=== PATIENT | female | born 1945 | race Caucasian/White ===

== ENCOUNTER → 2018-09-12 | Day surgery (SDC) | payer MEDICARE, OTHER ==
[2018-09-08 12:25] LABS: BASOPHILS # (AUTO) 0.1 (0.0-0.1); BASOPHILS % 0.9 % (0.0-1.0); EOSINOPHILS # (AUTO) 0.1 (0.0-0.4); EOSINOPHILS % 1.5 % (0.0-6.0); HEMATOCRIT 38.7 % (34.2-44.1); HEMOGLOBIN 13.3 g/dL (12.0-16.0); LYMPHOCYTES # (AUTO) 2.1 (1.0-3.2); MEAN CORPUSCULAR HEMOGLOBIN 32.2 pg (28-32); MEAN CORPUSCULAR HGB CONC 34.4 g/dL (31-35); MEAN CORPUSCULAR VOLUME 93.7 fL (81-99); MONOCYTES # (AUTO) 0.6 (0.2-0.8); MONOCYTES % 8.4 % (4.4-11.3); NEUTROPHILS # (AUTO) 3.8 (2.1-6.9); PLATELET COUNT 253 x10e3/uL (140-360); RED BLOOD COUNT 4.13 x10e6/uL (3.6-5.1); RED CELL DISTRIBUTION WIDTH 12.7 % (11.7-14.4)
--- NOTE | 2018-09-08 13:14 | Diagnostic Imaging Report ---
EXAM: XR CHEST 2 VIEWS DATE: 09/08/2018 12:15 PM INDICATION: Preoperative, foot pain COMPARISON: 10/14/2014 FINDINGS: Lines and Tubes: None Heart and Mediastinum: No acute cardiomediastinal findings. Mild aortic vascular calcifications and tortuosity descending thoracic aorta. Lungs and Pleura: No significant pleural effusion, pneumothorax, or focal consolidation. Atelectasis lung bases. Bones and Soft Tissues: No acute findings. IMPRESSION: 1. No acute cardiopulmonary findings. Signed by: Dr. Cheikh Dick MD on 09/08/2018 1:10 PM
[~2018-09-12] MED LIST: ACETAMINOPHEN 1000 MG/100 ML IV ONE; BACITRACIN 50,000 UNIT VIAL ONE; BUPIVACAINE HCL 0.5% 10ML MPF VIAL INJ ONE; CALCIUM PO; CEFAZOLIN SOD 1 GM/D5W 50ML 50 ML IV ONE; CENTRUM PO; CRESTOR10 MG PO; DEXAMETHASONE SOD PHOS INJ 4 MG/ML VIAL ONE; FENTANYL CITRATE/PF 100MCG/2 ML INJ ONE; LEVOTHYROXINE25 MCG PO; LIDOCAINE HCL 2% LOCAL INJ 5 ML SDV VIAL INJ ONE; MIDAZOLAM HCL 2 MG/2 ML VIAL ONE; MINIVELLE PATCH TD; NEXIUM20 MG PO; NEXIUM40 MG PO; ONDANSETRON HCL INJ 2 MG/ML VIAL ONE; PREMARIN PO; PROPOFOL IV EMULSION 10 MG/ML 20 ML VIAL ONE; SEVOFLURANE INHAL SOLN 250 ML PEN BTL ONE; TRAZADONE PO; VENLAFAXINE H37.5 M2 PO
--- OUTSIDE RECORDS SUMMARY | 2018-09-12 05:09 | XMS REPORT | Summary of Care ---
Author Author [facility] [place] Organization [facility] [place] Address Unknown Phone Unavailable Encounter HQ Encntr_alias(FIN) [id number] Date(s): 03/18/15 - 03/18/15 [facility] [place] [address] [facility] [place] [address] [phone] Discharge Disposition: Home Attending Physician: Ruperto Quintanilla MD Vital Signs No data available for this section Problem List No data available for this section Allergies, Adverse Reactions, Alerts No data available for this section Medications No data available for this section Results No data available for this section Immunizations No data available for this section Procedures No data available for this section Social History No data available for this section Assessment and Plan No data available for this section
--- OUTSIDE RECORDS SUMMARY | 2018-09-12 05:09 | XMS REPORT | Summary of Care ---
Author Organization Unknown Address Unknown Phone Unavailable Encounter HQ Encntr_alias(FIN) [id number] Date(s): 03/06/15 - 03/06/15 [facility] Outpatient Imaging - [address], [address] [phone] Discharge Disposition: Home Physician Attending: Ruperto Quintanilla MD Vital Signs No data [...]
--- OUTSIDE RECORDS SUMMARY | 2018-09-12 05:09 | XMS REPORT | Summary of Care ---
Author Organization Unknown Address Unknown Phone Unavailable Encounter HQ Encntr_jacki([facility]) [id number] Date(s): 06/04/14 - 06/04/14 [facility] Outpatient Imaging - [address] [address] [place] Discharge Disposition: Home Physician Attending: Ruperto Acosta MD Reason for Visit V76.12 - SCREEN MAMMOGRA Problem List No data available for this section Allergies, Adverse Reactions, Alerts No data available for this section Medications No data available for this section Medications Administered During Your Visit No data available for this section Immunizations No data available for this section
--- OUTSIDE RECORDS SUMMARY | 2018-09-12 05:09 | XMS REPORT | Continuity of Care Document ---
Author Author [facility] Interface Address Unknown Phone Unavailable Problems Problem Status Onset Date Classification Date Reported Comments Source R06.02 - SHORTNESS OF BREATH Active 03/17/2018 [facility] [place] ABDOMINAL OR PELVIC SWELLING, MASS OR LUMP, UNSPECIFIED SITE Active 03/27/2015 Condition 03/27/2015 [facility] UNK Active 03/27/2015 [facility] V76.12 - SCREEN MAMMOGRA Active 05/17/2014 [facility] [place] GERD (<span ID="[id number]</span>) Active Problem 04/10/2015 [facility] Hypothyroid Active Problem 04/10/2015 [facility] Mass of back Active Problem 04/10/2015 [facility] LIPOMA NEC Active [facility] Medications Medication Details Route Status Patient Instructions Ordering Provider Order Date Source Ondansetron 4 mg, 2 mL, Route: IVP, Drug form: INJ, ONCE, Dosing Weight 62.727, kg, PRN Nausea & Vomiting, Start date: 04/07/15 12:24:00Notes: (Same as: Osiel) MEDICATION WASTE Product Size: 4 mg Product Wasted: ___ mg Inactive 04/07/2015 [facility] Naloxone 0.04 mg, 0.1 mL, Route: IVP, Drug form: INJ, Q2MIN, Dosing Weight 62.727, kg, PRN Narcotic Reversal, Start date: 04/07/15 12:24:00, Duration: 8 doses or times, Stop date: Limited # of timesNotes: Same as Narcan Inactive 04/07/2015 [facility] Morphine 2 mg, 1 mL, Route: IVP, Drug form: INJ, Q5Min, Dosing Weight 62.727, kg, PRN Pain Score 4-6, Start date: 04/07/15 12:24:00, Duration: 5 doses or times, Stop date: Limited # of timesNotes: (Same as:MO RPhine Sulfate) Inactive 04/07/2015 [facility] Flumazenil 0.2 mg, 2 mL, Route: IVP, Drug form: INJ, PRN, Dosing Weight 62.727, kg, PRN Benzodiazepine Reversal, Initial dose, Start date: 04/07/15 12:24:00, Stop date: 04/08/15 12:23:00Notes: (Same as: Romazicon) Inactive 04/07/2015 [facility] Hydromorphone 0.5 mg, 0.5 mL, Route: IVP, Drug form: INJ, Q5Min, Dosing Weight 62.727, kg, PRN Pain Score 7-10, Start date: 04/07/15 12:24:00, Duration: 4 doses or times, Stop date: Limited # of times Inactive 04/07/2015 [facility] Fentanyl 50 microgram, 1 mL, Route: IVP, Drug form: INJ, Q5Min, Dosing Weight 62.727, kg, PRN Pain Score 7-10, Start date: 04/07/15 12:24:00, Duration: 2 doses or times, Stop date: Limited # of timesNotes: (Same as: Sublimaze) Preservative free. Inactive 04/07/2015 [facility] Acetaminophen 1,000 mg, Route: IVPB, Drug form: INJ, ONCE, Dosing Weight 62.727, kg, PRN Pain Score 1-3, Start date: 04/07/15 12:24:00, Duration: 1 doses or times, Stop date: Limited # of times Inactive 04/07/2015 [facility] Ketorolac Tromethamine 10 MG Oral Tablet 10 mg=1 tab, PO, Q6H, X 5 day, # 20 tab, 0 Refill(s) Active 04/07/2015 [facility] Ancef 2 gm, 100 mL, Route: IVPB, Drug form: INJ, ONCE, Dosing Weight 62.727, kg, Start date: 04/07/15 9:50:00, Duration: 1 doses or times, Stop date: 04/07/15 9:50:00Notes: Same as: Ancef Inactive 04/07/2015 [facility] Calcium Chloride 0.0014 MEQ/ML / Potassium Chloride 0.004 MEQ/ML / Sodium Chloride 0.103 MEQ/ML / Sodium Lactate 0.028 MEQ/ML Injectable Solution 1,000 mL, Rate: 25 ml/hr, Infuse over: 40 hr, Route: IV, Dosing Weight 62.727 kg, Total Volume: 1,000, Start date: 04/07/15 9:12:00, Duration: 30 day, Stop date: 05/07/15 9:11:00 Inactive 04/07/2015 [facility] Calcium Citrate PO, Daily, 0 Refill(s) Active 04/01/2015 [facility] Vitamin B12 0 Refill(s) Active 04/01/2015 [facility] Centrum Daily, 0 Refill(s) Active 04/01/2015 [facility] Premarin PO, Daily, 0 Refill(s) Active 04/01/2015 [facility] Esomeprazole 20 MG Enteric Coated Capsule [Nexium] 20 mg=1 cap, PO, Daily, # 30 cap, 0 Refill(s) Active 04/01/2015 [facility] venlafaxine 37.5 mg oral tablet, extended release 37.5 mg=1 tab, PO, Daily, # 30 tab, 0 Refill(s) Active 04/01/2015 [facility] levothyroxine 25 mcg (0.025 mg) oral tablet 25 microgram=1 tab, PO, Daily, # 30 tab, 0 Refill(s) Active 04/01/2015 [facility] Trazodone Hydrochloride 100 MG Oral Tablet 100 mg=1 tab, PO, Bedtime, # 30 tab, 1 Refill(s) Active 04/01/2015 [facility] Rosuvastatin calcium 10 MG Oral Tablet [Crestor] 10 mg=1 tab, PO, Bedtime, # 30 tab, 0 Refill(s) Active 04/01/2015 [facility] CRESTOR 10 MG TABS Active 03/27/2015 [facility] TRAZODONE HCL 100 MG TABS 1 tablet at bedtime Active 03/27/2015 [facility] LEVOTHYROXINE SODIUM 100 MCG TABS 1 tablet daily Active 03/27/2015 [facility] NEXIUM 20 MG CPDR 1 capsule daily Active 03/27/2015 [facility] VENLAFAXINE HCL ER 37.5 MG [id number] Active 03/27/2015 [facility] PREMARIN 0.625 MG TABS 1 tablet daily Active 03/27/2015 [facility] CENTRUM TABS Active 03/27/2015 [facility] CALCIUM ACETATE TABS Active 03/27/2015 [facility] Allergies, Adverse Reactions, Alerts Substance Category Reaction Severity Reaction type Status Date Reported Comments Source HYDROCODONE Drug allergy HYDROCODONE 03/27/2015 [facility] VICODIN Drug allergy VICODIN 03/27/2015 [facility] acetaminophen-HYDROcodone Assertion Drug allergy Active [facility] Geneva Assertion Drug allergy Active [facility] Tylenol with Codeine Assertion Drug allergy Active [facility] Vicodin Assertion Drug allergy Active [facility] Immunizations Immunization Date Given Site Status Last Updated Comments Source Results Order Name Results Value Reference Range Date Interpretation Comments Source Chest 2 views DX Chest 2 views DX EXAM: PA AND LATERAL CHEST X RAY DATE:- 03/17/2018 3:38 PM CDT . ORDERING PHYSICIAN: Marlon Carrero MD CLINICAL INDICATION: - mild shortness of breath; TECHNIQUE: PA and lateral views of chest COMPARISON: Unavailable FINDINGS: The lungs are slightly hyperinflated without focal consolidation. Heart size and mediastinal contours are normal. There is no acute bony abnormality. IMPRESSION: Slightly hyperinflated lungs without focal consolidation 03/17/2018 - - Read by: Arie Sam MD Dictated Date/time: 03/17/18 16:27 Electronically Signed by: Arie Sam MD 03/17/18 16:27 FINAL REPORT [facility] [place] ELECTROLYTES AGAP 13.4 meq/L 10.0 - 20.0 04/01/2015 [facility] ELECTROLYTES A/G Ratio 1.2 0.7 - 1.6 04/01/2015 [facility] ELECTROLYTES B/C Ratio 24 6 - 25 04/01/2015 [facility] ELECTROLYTES Globulin 3.2 g/dL 2.0 - 4.0 04/01/2015 [facility] ELECTROLYTES eGFR 88 mL/min/1.73m2 04/01/2015 Result Comment: The eGFR is calculated using the CKD-EPI formula. In most young, healthy individuals the eGFR will be >90 mL/min/1.73m2. The eGFR declines with age. An eGFR of 60-89 may be normal in some populations, particularly the elderly, for whom the CKD-EPI formula has not been extensively validated. Use of the eGFR is not recommended in the following populations: Individuals with unstable creatinine concentrations, including patients and those with serious co-morbid conditions. Patients with extremes in muscle mass or diet. The data above are obtained from the National Kidney Disease Education Program (NKDEP) which additionally recommends that when the eGFR is used in patients with extremes of body mass index for purposes of drug dosing, the eGFR should be multiplied by the estimated BMI. [facility] ELECTROLYTES Potassium Lvl 4.4 meq/L 3.5 - 5.1 04/01/2015 [facility] ELECTROLYTES Sodium Lvl 142 meq/L 135 - 145 04/01/2015 [facility] ELECTROLYTES Chloride Lvl 106 meq/L 95 - 109 04/01/2015 [facility] ELECTROLYTES Calcium Lvl 9.2 mg/dL 8.5 - 10.5 04/01/2015 [facility] ELECTROLYTES Creatinine Lvl 0.7 mg/dL 0.5 - 1.4 04/01/2015 [facility] ELECTROLYTES Bili Total 0.5 mg/dL 0.2 - 1.3 04/01/2015 [facility] ELECTROLYTES AST 18 unit/L 0 - 37 04/01/2015 [facility] ELECTROLYTES Albumin Lvl 3.9 g/dL 3.5 - 5.0 04/01/2015 [facility] ELECTROLYTES Total Protein 7.1 g/dL 6.4 - 8.4 04/01/2015 [facility] ELECTROLYTES Alk Phos 65 unit/L 39 - 136 04/01/2015 [facility] ELECTROLYTES ALT 23 unit/L 0 - 65 04/01/2015 [facility] ELECTROLYTES Glucose Lvl 86 mg/dL 70 - 99 04/01/2015 [facility] ELECTROLYTES BUN 17 mg/dL 7 - 22 04/01/2015 [facility] ELECTROLYTES CO2 27 meq/L 24 - 32 04/01/2015 [facility] HEMATOLOGY Eosinophils 0.6 % 0.0 - 4.0 04/01/2015 [facility] HEMATOLOGY Monocytes 6.0 % 2.0 - 12.0 04/01/2015 [facility] HEMATOLOGY Basophils 1.1 % 0.0 - 1.0 04/01/2015 [facility] HEMATOLOGY Lymphocytes 28.6 % 20.0 - 40.0 04/01/2015 [facility] HEMATOLOGY Basophils # 0.1 K/CMM 0.0 - 0.2 04/01/2015 [facility] HEMATOLOGY Lymphocytes # 2.2 K/CMM 1.0 - 5.5 04/01/2015 [facility] HEMATOLOGY Segs 63.7 % 45.0 - 75.0 04/01/2015 [facility] HEMATOLOGY Segs-Bands # 5.0 K/CMM 1.5 - 8.1 04/01/2015 [facility] HEMATOLOGY Monocytes # 0.5 K/CMM 0.0 - 0.8 04/01/2015 [facility] RBC 4.25 M/CMM 4.20 - 5.40 04/01/2015 [facility] Hgb 13.6 g/dL 12.0 - 16.0 04/01/2015 [facility] WBC 7.8 K/CMM 3.7 - 10.4 04/01/2015 [facility] Hct 39.8 % 36.0 - 48.0 04/01/2015 [facility] MCHC 34.2 g/dL 32.0 - 36.0 04/01/2015 [facility] MCH 32.1 pg 27.0 - 31.0 04/01/2015 [facility] RDW 12.3 % 11.5 - 14.5 04/01/2015 [facility] Platelet 277 K/CMM 133 - 450 04/01/2015 [facility] MPV 7.9 fL 7.4 - 10.4 04/01/2015 [facility] MCV 93.7 fL 80.0 - 98.0 04/01/2015 [facility] Spine lumbar w/wo contrast MRI Spine lumbar w/wo contrast MRI MRI LUMBAR SPINE WITHOUT AND WITH CONTRAST TECHNIQUE: Sagittal T1, sagittal T2 with fat saturation, axial T1 and axial T2 images were obtained. Intravenous gadolinium was given. COMPARISON: No prior exam. FINDINGS: Cutaneous marker is placed at the right paramedian posterior soft tissues at the L3 level. There is subjacent deep subcutaneous ill-defined increased T2 and STIR signal, with corresponding mild enhancement measuring approximately 17 mm transversely and 6.6 mm in AP dimension. No involvement of the underlying posterior paraspinal muscles is identified. No involvement of the lumbar spine is seen. Mild levocurvature of the lumbar spine is present. Right hepatic lobe T2 weighted hyperintense signal lesions are seen with peripheral contrast enhancement. The larger lesion measures approximately 3.8 cm craniocaudal dimension, 2.7 cm transversely. The conus medullaris terminates at the L1 level. T12-L1: Mild left asymmetric disc bulge is seen with minimal central canal stenosis. No mass effect on the lower thoracic cord. No foraminal stenosis. L1-L2: Approximately 5 mm disc osteophyte complex is seen with mild central canal stenosis. There is moderate to severe right foraminal stenosis due to disc osteophyte complex encroachment. Mild left foraminal stenosis is present. L2-L3: Mild disc bulge with scattered annular fissures are seen with mild central canal stenosis and mild bilateral foraminal stenosis. L3-L4: Unremarkable. L4-L5: Significant disc narrowing is present with moderate bilateral foraminal stenosis due to disc osteophyte complexes. Left asymmetric disc osteophyte complex measuring approximately 3.8 mm is seen with moderate left lateral recess stenosis and mild mass effect on the left L5 descending nerve root. L5-S1: Similar significant disc narrowing with moderate to severe bilateral foraminal stenosis due to disc osteophyte complex encroachment. Minimal central canal stenosis present. No abnormal enhancement is seen. IMPRESSION: 1. L3 level right paramedian deep subcutaneous signal abnormality and ill-defined enhancement, likely due to focal cellulitis sequela of recent trauma. Clinical followup is recommended. 2. Right hepatic lobe lesions likely hepatic hemangiomas, but not completely evaluated on this exam. Correlation with ultrasound is recommended. 3. Multilevel lumbar spine degenerative changes as above. 03/18/2015 - - Read by: Daimr Ovalle MD Dictated Date/time: 03/18/15 10:18 Electronically Signed by: Damir Ovalle MD 03/18/15 12:24 FINAL REPORT [facility] Naik Ext Lower non vascular US Ext Lower non vascular US EXAM: ULTRASOUND SOFT TISSUES OF BACK NONVASCULAR DATE: 03/06/2015 COMPARISON EXAMS: None. CLINICAL INDICATION: Palpable mass along the posterior right lower back DATA: Two to 3 cm Mass over the area of region and right back with tenderness when she bends or sleeps. TECHNIQUE: Multiple transverse and longitudinal images through the right mid to lower back in the region of the palpable abnormality were performed using grayscale and color flow imaging. An approximately 4 cm radius was scanned around the region of interest. DISCUSSION: No masses, cystic lesions, calcifications, or other pathology are seen in the region of interest. The contralateral left lower back reveals no abnormalities as well with a symmetric appearance to the right side. IMPRESSION: No abnormalities are visualized in the region of interest. If symptoms persist or worsen, or of the lesion enlarges, MRI would be the next imaging study of choice for further evaluation. 03/06/2015 - - Read by: Godfrey Escobedo MD Dictated Date/time: 03/07/15 08:20 Electronically Signed by: Godfrey Escobedo MD 03/07/15 08:24 FINAL REPORT [facility] Vital Signs Vital Sign Value Date Comments Source Systolic (mm Hg) 138 04/07/2015 [facility] Diastolic (mm Hg) 83 04/07/2015 [facility] Systolic (mm Hg) 147 04/07/2015 [facility] Diastolic (mm Hg) 75 04/07/2015 [facility] Systolic (mm Hg) 159 04/07/2015 [facility] Diastolic (mm Hg) 77 04/07/2015 [facility] Respitory Rate 17 04/07/2015 [facility] Respitory Rate 20 04/07/2015 [facility] Respitory Rate 17 04/07/2015 [facility] Heart Rate 67 04/01/2015 [facility] Temperature Oral (F) 98.3 F 04/01/2015 [facility] Height 160.02 cm 04/01/2015 [facility] Weight 62.727 04/01/2015 [facility] BMI Calculated 24.5 04/01/2015 [facility] Height 63 03/27/2015 [facility] Weight 138 03/27/2015 [facility] Temperature Oral (F) 98.2 F 03/27/2015 [facility] Heart Rate 62 03/27/2015 [facility] Systolic (mm Hg) 124 03/27/2015 [facility] Diastolic (mm Hg) 81 03/27/2015 [facility] Encounters Location Location Details Encounter Type Encounter Number Reason For Visit Attending Provider ADM Date DC Date Status Source [facility] [place] [facility] [id number] Ruperto Acosta 06/04/2014 06/05/2014 [facility] [place] [facility] Outpatient Imaging - [place] [facility] [id number] Ruperto Quintanilla 03/06/2015 03/07/2015 [facility] [place] [facility] - [place] [facility] [id number] Ruperto Quintanilla 03/18/2015 03/19/2015 [facility] [place] [facility] General Surgery 350 Office Visit [id number] Christiane Scott MD 03/27/2015 03/27/2015 [facility] Outpatient [id number] CHRISTIANE SCOTT 03/27/2015 Active [facility] Outpatient [id number] CHRISTIANE SCOTT 04/07/2015 Active [facility] Day Surgery [id number] Christiane Scott 04/07/2015 04/07/2015 [facility] Outpatient [id number] CHRISTIANE SCOTT 04/15/2015 Active [facility] Procedures Procedure Code Date Perfomer Comments Source Bunionectomy [id number] [place] Hysterectomy [id number] [facility] Tonsillectomy [id number] [facility]
--- OUTSIDE RECORDS SUMMARY | 2018-09-12 05:10 | XMS REPORT | Summary of Care ---
Author Author [facility] Organization [facility] Address Unknown Phone Unavailable Encounter YAKOV Bundy(MARIAN) [id number] Date(s): 04/07/15 - 04/07/15 [facility] [address] [place] [address]- Discharge Disposition: Home Attending Physician: Ravi Scott MD Referring Physician: Ravi Scott MD Vital Signs 1 2 3 Most recent to oldest [Reference Range]: 160.02 cm (04/01/15 2:22 PM) Height 1 2 3 Most recent to oldest [Reference Range]: 98.3 DegF (04/01/15 2:22 PM) Temperature Oral [96.4-99.1 DegF] 1 2 3 Most recent to oldest [Reference Range]: 138/83 mmHg (04/07/15 1:45 PM) 147/75 mmHg *HI* (04/07/15 1:30 PM) 159/77 mmHg *HI* (04/07/15 1:15 PM) Blood Pressure [90-140/60-90 mmHg] 1 2 3 Most recent to oldest [Reference Range]: 17 BRMIN (04/07/15 1:00 PM) 20 BRMIN (04/07/15 12:45 PM) 17 BRMIN (04/07/15 12:30 PM) Respiratory Rate [14-20 BRMIN] 1 2 3 Most recent to oldest [Reference Range]: 67 bpm (04/01/15 2:22 PM) Peripheral Pulse Rate [60-100 bpm] 1 2 3 Most recent to oldest [Reference Range]: 62.727 kg (04/01/15 2:22 PM) Weight 1 2 3 Most recent to oldest [Reference Range]: 24.5 m2 (04/01/15 2:22 PM) Body Mass Index Problem List Condition Effective Dates Status Health Status Informant GERD Active (gastroesophageal reflux disease)(Confirmed) Hypothyroid(Confirme Active d) Mass of Active back(Confirmed) Allergies, Adverse Reactions, Alerts Substance Reaction Severity Status acetaminophen-HYDROcodone Active Creighton Active Tylenol with Codeine Active Vicodin Active Medications acetaminophen 1,000 mg, Route: IVPB, Drug form: INJ, ONCE, Dosing Weight 62.727, kg, PRN Pain Score 1-3, Start date: 04/07/15 12:24:00, Duration: 1 doses or times, Stop date: Limited # of times Start Date: 04/07/15 Stop Date: 04/07/15 Status: Deleted Ancef 2 gm, 100 mL, Route: IVPB, Drug form: INJ, ONCE, Dosing Weight 62.727, kg, Start date: 04/07/15 9:50:00, Duration: 1 doses or times, Stop date: 04/07/15 9:50:00 Notes: Same as: Ancef Start Date: 04/07/15 Stop Date: 04/07/15 Status: Completed calcium citrate PO, Daily, 0 Refill(s) Start Date: 04/01/15 Status: Ordered Centrum Daily, 0 Refill(s) Start Date: 04/01/15 Status: Ordered Crestor 10 mg oral tablet 10 mg=1 tab, PO, Bedtime, # 30 tab, 0 Refill(s) Start Date: 04/01/15 Status: Ordered fentaNYL 50 microgram, 1 mL, Route: IVP, Drug form: INJ, Q5Min, Dosing Weight 62.727, kg, PRN Pain Score 7-10, Start date: 04/07/15 12:24:00, Duration: 2 doses or times, Stop date: Limited # of times Notes: (Same as: Sublimaze) Preservative free. Start Date: 04/07/15 Stop Date: 04/07/15 Status: Discontinued flumazenil 0.2 mg, 2 mL, Route: IVP, Drug form: INJ, PRN, Dosing Weight 62.727, kg, PRN Jimenez zodiazepine Reversal, Initial dose, Start date: 04/07/15 12:24:00, Stop date: 12:23:00 Notes: (Same as: Romazicon) Start Date: 04/07/15 Stop Date: 04/07/15 Status: Discontinued hydromorphone 0.5 mg, 0.5 mL, Route: IVP, Drug form: INJ, Q5Min, Dosing Weight 62.727, kg, PRN Pain Score 7-10, Start date: 04/07/15 12:24:00, Duration: 4 doses or times, Stop date: Limited # of times Start Date: 04/07/15 Stop Date: 04/07/15 Status: Discontinued ketOROLAC 10 mg oral tablet 10 mg=1 tab, PO, Q6H, X 5 day, # 20 tab, 0 Refill(s) Start Date: 04/07/15 Stop Date: 04/12/15 Status: Ordered Lactated Ringers Injection IV 1,000 mL 1,000 mL, Rate: 25 ml/hr, Infuse over: 40 hr, Route: IV, Dosing Weight 62.727 kg , Total Volume: 1,000, Start date: 04/07/15 9:12:00, Duration: 30 day, Stop date : 05/07/15 9:11:00 Start Date: 04/07/15 Stop Date: 04/07/15 Status: Discontinued levothyroxine 25 mcg (0.025 mg) oral tablet 25 microgram=1 tab, PO, Daily, # 30 tab, 0 Refill(s) Start Date: 04/01/15 Status: Ordered morphine Sulfate 2 mg, 1 mL, Route: IVP, Drug form: INJ, Q5Min, Dosing Weight 62.727, kg, PRN Darlene n Score 4-6, Start date: 04/07/15 12:24:00, Duration: 5 doses or times, Stop saturnino e: Limited # of times Notes: (Same as:MORPhine Sulfate) Start Date: 04/07/15 Stop Date: 04/07/15 Status: Discontinued naloxone 0.04 mg, 0.1 mL, Route: IVP, Drug form: INJ, Q2MIN, Dosing Weight 62.727, kg, IN N Narcotic Reversal, Start date: 04/07/15 12:24:00, Duration: 8 doses or times, Stop date: Limited # of times Notes: Same as Narcan Start Date: 04/07/15 Stop Date: 04/07/15 Status: Discontinued NexIUM 20 mg oral delayed release capsule 20 mg=1 cap, PO, Daily, # 30 cap, 0 Refill(s) Start Date: 04/01/15 Status: Ordered ondansetron 4 mg, 2 mL, Route: IVP, Drug form: INJ, ONCE, Dosing Weight 62.727, kg, PRN Naus ea & Vomiting, Start date: 04/07/15 12:24:00 Notes: (Same as: Osiel) MEDICATION WASTE Product Size: 4 mgProduct Was omar: ___ mg Start Date: 04/07/15 Stop Date: 04/07/15 Status: Discontinued Premarin PO, Daily, 0 Refill(s) Start Date: 04/01/15 Status: Ordered trazodone 100 mg oral tablet 100 mg=1 tab, PO, Bedtime, # 30 tab, 1 Refill(s) Start Date: 04/01/15 Stop Date: 05/01/15 Status: Ordered venlafaxine 37.5 mg oral tablet, extended release 37.5 mg=1 tab, PO, Daily, # 30 tab, 0 Refill(s) Start Date: 04/01/15 Status: Ordered Vitamin B12 0 Refill(s) Start Date: 04/01/15 Status: Ordered Results ELECTROLYTES Most recent to 1 oldest [Reference Range]: Sodium Lvl [135-145 142 mEq/L mEq/L] (04/01/15 2:36 PM) Potassium Lvl 4.4 mEq/L [3.5-5.1 mEq/L] (04/01/15 2:36 PM) Chloride Lvl [95-109 106 mEq/L mEq/L] (04/01/15 2:36 PM) CO2 [24-32 mEq/L] 27 mEq/L (04/01/15 2:36 PM) AGAP [10.0-20.0 13.4 mEq/L mEq/L] (04/01/15 2:36 PM) CHEM PANEL Most recent to 1 oldest [Reference Range]: Creatinine Lvl 0.7 mg/dL [0.5-1.4 mg/dL] (04/01/15 2:36 PM) eGFR 88 mL/min/1.73m2 1 *NA* (04/01/15 2:36 PM) BUN [7-22 mg/dL] 17 mg/dL (04/01/15 2:36 PM) B/C Ratio [6-25] 24 (04/01/15 2:36 PM) Glucose Lvl [70-99 86 mg/dL mg/dL] (04/01/15 2:36 PM) Total Protein 7.1 g/dL [6.4-8.4 g/dL] (04/01/15 2:36 PM) Albumin Lvl [3.5-5.0 3.9 g/dL g/dL] (04/01/15 2:36 PM) Globulin [2.0-4.0 3.2 g/dL g/dL] (04/01/15 2:36 PM) A/G Ratio [0.7-1.6] 1.2 (04/01/15 2:36 PM) Calcium Lvl 9.2 mg/dL [8.5-10.5 mg/dL] (04/01/15 2:36 PM) ALT [0-65 unit/L] 23 unit/L (04/01/15 2:36 PM) AST [0-37 unit/L] 18 unit/L (04/01/15 2:36 PM) Alk Phos [39-136 65 unit/L unit/L] (04/01/15 2:36 PM) Bili Total [0.2-1.3 0.5 mg/dL mg/dL] (04/01/15 2:36 PM) 1Result Comment: The eGFR is calculated using the [...] from the National Kidney Disease Education Program ( NKDEP) which additionally recommends that when the eGFR is used in patients with extremes of body mass index for purposes of drug dosing, the eGFR should be mul tiplied by the estimated BMI. HEMATOLOGY Most recent to 1 oldest [Reference Range]: WBC [3.7-10.4 K/CMM] 7.8 K/CMM (04/01/15 2:36 PM) RBC [4.20-5.40 4.25 M/CMM M/CMM] (04/01/15 2:36 PM) Hgb [12.0-16.0 g/dL] 13.6 g/dL (04/01/15 2:36 PM) Hct [36.0-48.0 %] 39.8 % (04/01/15 2:36 PM) MCV [80.0-98.0 fL] 93.7 fL (04/01/15 2:36 PM) MCH [27.0-31.0 pg] 32.1 pg *HI* (04/01/15 2:36 PM) MCHC [32.0-36.0 34.2 g/dL g/dL] (04/01/15 2:36 PM) RDW [11.5-14.5 %] 12.3 % (04/01/15 2:36 PM) Platelet [133-450 277 K/CMM K/CMM] (04/01/15 2:36 PM) MPV [7.4-10.4 fL] 7.9 fL (04/01/15 2:36 PM) Segs [45.0-75.0 %] 63.7 % (04/01/15 2:36 PM) Lymphocytes 28.6 % [20.0-40.0 %] (04/01/15 2:36 PM) Monocytes [2.0-12.0 6.0 % %] (04/01/15 2:36 PM) Eosinophils [0.0-4.0 0.6 % %] (04/01/15 2:36 PM) Basophils [0.0-1.0 1.1 % %] *HI* (04/01/15 2:36 PM) Segs-Bands # 5.0 K/CMM [1.5-8.1 K/CMM] (04/01/15 2:36 PM) Lymphocytes # 2.2 K/CMM [1.0-5.5 K/CMM] (04/01/15 2:36 PM) Monocytes # [0.0-0.8 0.5 K/CMM K/CMM] (04/01/15 2:36 PM) Basophils # [0.0-0.2 0.1 K/CMM K/CMM] (04/01/15 2:36 PM) Immunizations No data available for this section Procedures Procedure Date Related Diagnosis Body Site Bunionectomy Hysterectomy Tonsillectomy Social History Social History Type Response Smoking Status Never smoker; Exposure to Tobacco Smoke None; Cigarette Smoking Last 365 Days No; Reg Smoking Cessation Counseling No Assessment and Plan Extracted from: Title: Clinical Document Author: Ravi Scott MD Date: 03/27/15 Referring Provider: Ruperto Quintanilla MD Primary Provider: Ruperto Quintanilla MD CC: back mass. History of Present Illness: Thank you for allowing me to particiapte in the care of this patient 69 year old lady comes for evaluation of a back mass. Noticed it recently when she started to develop some pain in the area. descirbed as dull and cramping, mild to moderate, worse with daily activities such as working in the garden. Work up including MRI shows an indistinct mass. Past Medical History: Reviewed history and no changes required: Back Lipoma Bronchitis Measles Low Thyroid Tonsillitis Anemia - 1967 Arthritis - hands Breast Lump High Tryglicerides Mumps Loss of Sleep Hot Flashes Indigestion Past Surgical History: Reviewed history and no changes required: Left Breast Lumpectomy - 1999 Tonsillectomy - 2011 Hysterectomy - 1971 Family History Summary: Mother (biol.) - Has Family History of Hypertension - Entered On: 03/27/2015 Social History: Alcohol Use - yes Drug Use - no HIV/High Risk - no Smoking History: Patient has never smoked. Risk Factors: Smoked Tobacco Use: Never smoker Smokeless Tobacco Use: Never Drug use: no HIV high-risk behavior: no Caffeine use: 0 drinks per day Alcohol use: yes Type: Red Wine Drinks per day: 1 Review of Systems General Denies fever, chills and sweats. Eyes Denies double vision and blurred vision. ENT Denies hoarseness and sore throat. CV Denies difficulty breathing at night and chest pain. Resp Denies cough and shortness of breath. GI Denies nausea, vomiting and abdominal pain. Denies urinary frequency and urinary urgency. MS See HPI Complains of back pain. Denies upper extremity pain and lower extremity pain. Derm Denies itching and rash. Neuro Denies numbness and tingling. Psych Denies anxiety and depression. Endo Denies cold intolerance and heat intolerance. Heme Denies bleeding and abnormal bruising. Vital Signs: Patient Profile:69 Years Old Female Height:63 inches (160.02 cm) Weight: 138 pounds (62.73 kg) BMI:24.53 kg/m2 BSA:1.65 m2 Temp:98.2 degrees F (36.78 degrees C) oral Pulse rate:62 / minute BP sittin / 81 (right arm) Cuff size:regular Vitals Entered By: Radha Cruz (March 27, 2015 10:41 AM) Physical Exam General: well developed, well nourished, in no acute distress. Head: normocephalic and atraumatic. Eyes: PERRL/EOM intact, conjunctiva and sclera clear Neck: no masses Chest Wall: no deformities Lungs: clear bilaterally to auscultation. Heart: regular rhythm and normal rate. Abdomen: normal bowel sounds; no hepatosplenomegaly no ventral,umbilical hernias or masses noted. Msk: no deformity. small 5x3cm mass noted, mobile, soft, feels like a lipoma Pulses: pulses normal in all 4 extremities. Extremities: no clubbing, cyanosis, edema, or deformity noted Neurologic: no focal deficits, cranial nerves II-XII grossly intact Skin: intact without lesions or rashes. Psych: alert and cooperative; normal mood and affect; normal attention span and concentration. Impression & Recommendations: Problem # 1: ABDOMINAL OR PELVIC SWELLING, MASS OR LUMP, UNSPECIFIED SITE (ICD- 789.30) (YCF24-V63.00) Assessment: New Back mass Desires excision Risks and benefits discussed with patient in detail Orders: Office Visit, New, Level III - 54422 ([id number]) Medications Added to Medication List This Visit: 1) Crestor 10 Mg Tabs (Rosuvastatin calcium) 2) Trazodone Hcl 100 Mg Tabs (Trazodone hcl) .... 1 tablet at bedtime 3) Levothyroxine Sodium 100 Mcg Tabs (Levothyroxine sodium) .... 1 tablet daily 4) Nexium 20 Mg Cpdr (Esomeprazole magnesium) .... 1 capsule daily 5) Venlafaxine Hcl Er 37.5 Mg [id number] (Venlafaxine hcl) 6) Premarin 0.625 Mg Tabs (Estrogens conjugated) .... 1 tablet daily 7) Centrum Tabs (Multiple vitamins-minerals) 8) Calcium Acetate Tabs (Calcium acetate tabs) Patient Instructions: 1) Reassured 2) Plan excision 3) Avoid trigger factors Did you e-prescribe during this visit? No Electronic prescriptions were not sent during this visit.
--- OUTSIDE RECORDS SUMMARY | 2018-09-12 05:10 | XMS REPORT | Continuity of Care Document ---
Author Author [facility] Organization [facility] Address Unknown Phone Unavailable Care Team Providers Care Foot Drill Operator Name Role Phone MD Sonia, Ravi GODDARD Unavailable Insurance Providers Payer name Policy type / Coverage type Policy ID Covered libertarian ID Policy Fuller MEDIC[place] [employer] A[employer] (HMO) AETNA - COMPREHENSIVE MEDICAL (INDEMNITY) AETNA (HMO) AETNA (HMO) AETNA (HMO) AETNA (HMO) AETNA (HMO) AETNA (HMO) Encounters Encounter Performer Location Date Office Visit Ravi Scott MD [facility] [address] Mar 27, 2015 Allergies, Adverse Reactions, Alerts Type Substance Reaction Status Drug allergy HYDROCODONE Itching Active Drug allergy VICODIN itching Active Problems Problem Effective Dates Problem Status ABDOMINAL OR PELVIC SWELLING, MASS OR LUMP, UNSPECIFIED SITE Mar 27, 2015 Active Procedures Date Description Comments Mar 27, 2015 smoking status Never smoker Medications Medication Instructions Start Date Status CRESTOR 10 MG TABS Mar 27, 2015 Active TRAZODONE HCL 100 MG TABS 1 tablet at bedtime Mar 27, 2015 Active LEVOTHYROXINE SODIUM 100 MCG TABS 1 tablet daily Mar 27, 2015 Active NEXIUM 20 MG CPDR 1 capsule daily Mar 27, 2015 Active VENLAFAXINE HCL ER 37.5 MG [id number] Mar 27, 2015 Active PREMARIN 0.625 MG TABS 1 tablet daily Mar 27, 2015 Active CENTRUM TABS Mar 27, 2015 Active CALCIUM ACETATE TABS Mar 27, 2015 Active Vital Signs Date Description Test Result Mar 27, 2015 height E&M - 8302-2 HEIGHT 63 in Mar 27, 2015 weight E&M - 3141-9 WEIGHT 138 lb Mar 27, 2015 temperature E&M TEMPERATURE 98.2 deg f Mar 27, 2015 pulse rate E&M - 8867-4 PULSE RATE 62 /min Mar 27, 2015 blood pressure, systolic - 8480-6 BP SYSTOLIC 124 mm Hg Mar 27, 2015 blood pressure, diastolic - 8462-4 BP DIASTOLIC 81 mm Hg
--- OUTSIDE RECORDS SUMMARY | 2018-09-12 05:10 | XMS REPORT ---
Author Author [facility] Address Unknown Phone Unavailable Care Team Providers Care Can Doffer Name Role Phone Itzel LITTLE Unavailable Unavailable Problems This patient has no known problems. Allergies, Adverse Reactions, Alerts This patient has no known allergies or adverse reactions. Medications This patient has no known medications. Results Test Description Test Time Test Comments Text Results Atomic Results Result Comments CHEST 2 VIEWS 2018-09-08 13:10:00 [facility] [address] [address] Patient Name: KRISHAN CAMPA MR #: [id number] : 1945 Age/Sex: 72/F Req #: [id number] Adm Physician: Ordered by: Itzel LITTLE DPM Report #: [id number] Location: OR Room/Bed: Procedure: [id number] DX/CHEST 2 VIEWS Exam Date: 09/08/18 Exam Time: 1236 REPORT STATUS: Signed EXAM: XR CHEST 2 VIEWS DATE: 09/08/2018 12:15 PM IND ICATION: Preoperative, foot pain COMPARISON: 10/14/2014 FINDINGS: Lines and Tubes: None Heart and Mediastinum: No acute cardiomediastinal findings. Mild aortic vascular calcifications and tortuosity descending thoracic aorta. Lungs and Pleura: No significant pleural effusion, pneumothorax, or focal consolidation. Atelectasis lung bases. Bones and Soft Tissues: No acute findings. IMPRESSION: 1. No acute cardiopulmonary findings. Signed by: Dr. Cheikh Dick MD on 09/08/2018 1:10 PM Dictated By: CHEIKH DICK MD 09 Transcribed By: RAMIN on 09/08/181309 COPY TO: Itzel LITTLE DPM
[2018-09-12 08:00] VITALS: BP 149/85
--- NOTE | 2018-09-12 10:42 | Operative Report ---
DATE OF PROCEDURE: September 12, 2018 PREOPERATIVE DIAGNOSES 1. Right hallux rigidus. 2. Right hallux valgus. POSTOPERATIVE DIAGNOSES 1. Right hallux rigidus. 2. Right hallux valgus. PLANNED PROCEDURE: Right Marshall bunionectomy with implant. SURGEON: Dr. Jorge DPM. VOCAL TEACHER: Dianna Jain DPM ANESTHESIA: General with a postoperative block consisting of 15 mL of 0.5% Marcaine plain mixed with 1 mL of dexamethasone phosphate. HEMOSTASIS: Pneumatic thigh tourniquet set at 350 mmHg for a total time of approximately 30 minutes. MATERIALS 1. Size 2 toe, reference inter-bone implant. 2. 2-0 Vicryl. 3. 3-0 Vicryl. 4. 4-0 nylon. ESTIMATED BLOOD LOSS: Less than 10 mL. PATHOLOGY: None. DETAILS OF PROCEDURE: Patient was seen in the preoperative waiting and the correct procedure and site was identified. The patient was brought to the operating room and placed on the operating table in the supine position. General anesthesia was initiated at this time. A well-padded pneumatic tourniquet was placed about the patient's right thigh. The right foot, ankle and leg was then scrubbed, prepped and draped in the usual aseptic manner. The right foot, ankle and leg was exsanguinated with an Esmarch bandage, and pneumatic thigh tourniquet was inflated to 350 mmHg for a total time of approximately 30 minutes. Attention was directed the dorsomedial aspect of the patient's right foot where a 4 cm curvilinear incision made directly over the 1st metatarsophalangeal joint medial to extensor hallucis longus tendon. The incision was carried through the subcutaneous tissues them from deeper underlying structures. All vital neurovascular structures were identified, retracted medially and laterally, and all bleeders were cauterized or ligated as deemed necessary. At this time, through the same incision a full lateral release was performed consisting of the deep transverse metatarsal ligament, lateral and collateral ligament, as well as the fibular sesamoid ligament. Next, attention was directed back to the 1st metatarsophalangeal joint where a linear capsulotomy was performed to allow for good visualization of 1st metatarsal head, as well as the base of the middle phalanx. It should be noted that upon entrance of the metatarsophalangeal joint, there was noted to be about 80% denuded cartilage to the head of the 1st metatarsal and approximately 60% to the base of the proximal phalanx. Utilizing a sagittal saw, the medial eminence was resected and passed off to the back table, as well as the dorsal eminence and the lateral eminence. Utilizing a rongeur and an egg bur, the 1st metatarsal head was reshaped to anatomic alignment. Next, per box office attendant protocol, utilizing a sagittal saw, the distal aspect of the articular cartilage of the 1st metatarsal was cut and passed off to the back table. The base of the proximal phalanx was also resected and passed off the back table. The wound was then flushed with copious amounts of sterile saline. Next, per box office attendant protocol, a guidewire was placed into the 1st metatarsal shaft. A proximal reamer was used to allow for the implant holes. The same guidewire was applied to the distal phalanx and the distal aspect was reamed. Next, the grommets were placed and impacted onto the shaft of the 1st metatarsal, as well as the base of the proximal phalanx. A 2 inter-bone toe reference implant was placed. There was noted to be good anatomic alignment and function to the toe. This was confirmed via intraoperative fluoroscopy. The capsule and deep tissue were reapproximated with 2-0 Vicryl, subcutaneous tissue with 3-0 Vicryl and skin was closed using a running interlocking stitch with 4-0 nylon. The incision site was then dressed with Adaptic, 4 x 4s, Kerlix, Howard wrap, and a postop shoe. The patient tolerated the procedure and anesthesia well. Patient was transferred to the postoperative recovery unit with vital signs stable and vascular status intact. Patient was monitored there for a short period time before being sent home with the follow written and oral instructions: 1. Keep the dressing clean, dry and tact. 2. The patient is to remain minimal and partial weightbearing to the right foot and to avoid excessive ambulation until being seen in the office. 3. Patient was given the office number and instructed to contact us if any problems should arise. DICTATED BY DIANNA JAIN DPM Job#: [id number] MARGY
== END | disposition home or self-care (01) ==
LOC: OR 05:00
PROVIDERS: ATTEND Podiatrist Foot & Ankle Surgery
DX: M20.21 Hallux rigidus, right foot (principal); M20.11 Hallux valgus (acquired), right foot; E03.9 Hypothyroidism, unspecified; K21.9 Gastro-esophageal reflux disease without esophagitis; E78.00 Pure hypercholesterolemia, unspecified; Z01.810 Encounter for preprocedural cardiovascular examination; Z01.812 Encounter for preprocedural laboratory examination; Z01.818 Encounter for other preprocedural examination; Z88.5 Allergy status to narcotic agent
CPT/HCPCS: 36415; 71046; 85025; 93005; J0690; J1100; J2001; J2250; J2405; L8642

== ENCOUNTER → 2020-11-19 | Outpatient (CLI) | payer MEDICARE, OTHER ==
[~2020-11-19] MED LIST changes: -ACETAMINOPHEN 1000 MG/100 ML IV ONE; -BACITRACIN 50,000 UNIT VIAL ONE; -BUPIVACAINE HCL 0.5% 10ML MPF VIAL INJ ONE; -CEFAZOLIN SOD 1 GM/D5W 50ML 50 ML IV ONE; -DEXAMETHASONE SOD PHOS INJ 4 MG/ML VIAL ONE; -FENTANYL CITRATE/PF 100MCG/2 ML INJ ONE; -LIDOCAINE HCL 2% LOCAL INJ 5 ML SDV VIAL INJ ONE; -MIDAZOLAM HCL 2 MG/2 ML VIAL ONE; -ONDANSETRON HCL INJ 2 MG/ML VIAL ONE; -PROPOFOL IV EMULSION 10 MG/ML 20 ML VIAL ONE; -SEVOFLURANE INHAL SOLN 250 ML PEN BTL ONE
== END ==
LOC: MAMMO 14:07
PROVIDERS: ATTEND Obstetrics & Gynecology
DX: Z12.31 Encounter for screening mammogram for malignant neoplasm of breast (principal)
CPT/HCPCS: 77067